=== PATIENT | female | born 1985 ===

== ENCOUNTER 2017-11-18 09:33 | Emergency (ER) | payer OTHER ==
[2017-11-18 09:40] VITALS: BP 161/98; PULSE 75; RESP 16; TEMP 98; O2SAT 98
--- NOTE | 2017-11-18 09:53 | C.PDOC ---
History Of Present Illness 32 y/o female presents to the ED complaining of facial redness and eye redness since yesterday. She first noticed symptoms after an episode of vomiting, associated with migraine. Patient notes the headache, nausea, and vomiting are now resolved. Denies any trauma. Otherwise denies fever, chills, eye discharge, pruritus, pain, or other associated symptoms. VIA TRANS NEW ONSET REDNESS FACIAL AND EYE REDNESS SINCE YEST. ONSET AFTER VOMITING FROM MIGRAINE. MAHMOOD, NV NOW RESOLVED. NO TRAUMA EXAM NAD NONTOXIC HEENT CONJ PETECHIAL HEMORRHAGE, SCANT B/L INNER EYES; NO VISION DEFECT, EOMI; NO BRUISING, SWELL ATRAUM SKIN +PETECHIAL SPOTS PERIORBITAL, NONBLANCHING NONTEND. NO ECHYMOSIS. INTACT REMAINDER NEG Time Seen by Provider: 11/18/17 09:45 Chief Complaint (Nursing): Abnormal Skin Integrity History Per: Patient History/Exam Limitations: no limitations Onset/Duration Of Symptoms: Days Current Symptoms Are (Timing): Still Present Past Medical History Reviewed: Historical Data, Nursing Documentation, Vital Signs Vital Signs: Last Vital Signs Temp 98 F 11/18/17 09:38 Pulse 75 11/18/17 09:38 Resp 16 11/18/17 09:38 BP 161/98 H 11/18/17 09:38 Pulse Ox 98 11/18/17 09:54 - Medical History PMH: Migraine Family History: States: No Known Family Hx - Social History Hx Tobacco Use: No Hx Alcohol Use: No Hx Substance Use: No - Immunization History Hx Tetanus Toxoid Vaccination: No Hx Influenza Vaccination: No Hx Pneumococcal Vaccination: No Review Of Systems Except As Marked, All Systems Reviewed And Found Negative. Constitutional: Negative for: Fever, Chills Eyes: Positive for: Redness. Negative for: Pain, Vision Change, Other (pruritus ) Gastrointestinal: Negative for: Nausea, Vomiting Skin: Positive for: Rash (facial) Neurological: Negative for: Headache Physical Exam - Physical Exam Appears: Non-toxic, No Acute Distress Skin: Warm, Other (+ petechial spots to periorbital region, non-blanching, non- tender. No ecchymosis. Skin is otherwise intact) Head: Atraumatic, Normacephalic Eye(s): bilateral: PERRL, EOMI, Other (conjunctival petechial hemorrhage to scant bilateral inner eyes; no visual deficits, bruising, or swelling) Nose: Normal Oral Mucosa: Moist Neck: Normal ROM, Supple Chest: Symmetrical Respiratory: No Accessory Muscle Use, Other (NARD, speaking in complete sentences) Extremity: Bilateral: Atraumatic, Normal ROM Pulses: Left Radial: Normal, Right Radial: Normal Neurological/Psych: Oriented x3, Normal Speech, Normal Cranial Nerves, Other ( No focal deficits) ED Course And Treatment O2 Sat by Pulse Oximetry: 98 (RA) Pulse Ox Interpretation: Normal Medical Decision Making Medical Decision Making: Initial Impression: 32 y/o F with traumatic petechiae Plan: Patient is medically stable and will be discharged home. Counseled regarding diagnosis and treatment plan. Provided RX for Compazine, advised to take medication as prescribed. There is agreement to discharge plan. Disposition Counseled Patient/Family Regarding: Diagnosis, Need For Followup, Rx Given - Disposition Referrals: [facility] [Outside] [facility] [Outside] Disposition: HOME/ ROUTINE Disposition Time: 09:53 Condition: GOOD Prescriptions: Prochlorperazine [Compazine] 10 mg PO TID #12 tab Instructions: Subconjunctival Hemorrhage Forms: [employer] (Mexican), Work Excuse Print Language: CITIZEN OF [place] - Clinical Impression Clinical Impression: Traumatic petechiae, Subconjunctival hemorrhage - Scribe Statement The provider has reviewed the documentation as recorded by the Scribe (Geovanna Daniel) Provider Attestation: All medical record entries made by the Scribe were at my direction and personally dictated by me. I have reviewed the chart and agree that the record accurately reflects my personal performance of the history, physical exam, medical decision making, and the department course for this patient. I have also personally directed, reviewed, and agree with the discharge instructions and disposition.
== END 2017-11-18 10:10 | disposition home or self-care (01) ==
LOC: C.ER 09:33
DX: R23.3 Spontaneous ecchymoses (principal); H11.33 Conjunctival hemorrhage, bilateral